=== PATIENT | female | born 1930 | race Caucasian/White ===

== ENCOUNTER → 2016-11-09 | Outpatient (CLI) | payer OTHER, BC | LOC: FIMAGING 09:35 | PROVIDERS: ATTEND Internal Medicine | DX: M81.0 Age-related osteoporosis without current pathological fracture (principal); Z13.820 Encounter for screening for osteoporosis; E11.9 Type 2 diabetes mellitus without complications; C18.9 Malignant neoplasm of colon, unspecified; Z78.0 Asymptomatic menopausal state; Z98.1 Arthrodesis status ==

== ENCOUNTER → 2018-09-19 | Outpatient (CLI) | payer OTHER, BC | LOC: CIMAGING 14:42 | PROVIDERS: ATTEND Family Medicine | DX: M79.89 Other specified soft tissue disorders (principal); S92.425A Nondisplaced fracture of distal phalanx of left great toe, initial encounter for closed fracture | CPT/HCPCS: 73660-PO ==